=== PATIENT | male | born 1955 | race Caucasian/White ===

== ENCOUNTER → 2019-08-23 | Outpatient (CLI) | payer MEDICARE ==
--- NOTE | 2019-08-23 15:15 | US ---
EXAMINATION TYPE: US abdomen complete DATE OF EXAM: 08/23/2019 COMPARISON: NONE CLINICAL HISTORY: Generalized abd pain R10.84. Abdomen pain, weight gain, patient has Down Syndrome, patient's sister gave history EXAM MEASUREMENTS: Liver Length: 18.2 cm Gallbladder Wall: 0.2 cm CBD: 0.4 cm Spleen: 10.4 cm Right Kidney: 10.3 x 4.3 x 5.0 cm Left Kidney: 9.9 x 5.4 x 4.4 cm Difficult and limited study due to patient body habitus Pancreas: visualized portions wnl, limited by overlying midline bowel gas Liver: wnl Gallbladder: multiple echogenic foci with largest measuring 2.0cm, wall measures wnl Evidence for sonographic Polo's sign: n/a CBD: visualized portions wnl, limited by overlying bowel gas Spleen: visualized portions wnl, limited by overlying bowel gas Right Kidney: wnl Left Kidney: wnl Upper IVC: wnl Abd Aorta: visualized portions wnl, mid portion obscured by overlying midline bowel gas IMPRESSION: 1. Cholelithiasis. 2. Moderate fatty infiltration liver. 3. There is some limitation due to bowel gas present on the exam.
== END | disposition home or self-care (01) ==
LOC: RADUSWWP 10:25 → EEVIPCON 10:25
PROVIDERS: ATTEND Internal Medicine Geriatric Medicine
DX: K80.20 Calculus of gallbladder without cholecystitis without obstruction (principal); K76.0 Fatty (change of) liver, not elsewhere classified
CPT/HCPCS: 76700